=== PATIENT | female | born 1945 | race Caucasian/White ===

== ENCOUNTER 2022-04-29 12:17 | Inpatient (IN) | payer MEDICARE ==
[2022-04-29] MEDS ORDERED: Ondansetron 4 MG/2 ML SDV IVPUSH ONE (12:29)
[2022-04-29] MEDS ORDERED: Sodium Chloride 0.9% 500 ML IV SCH ×2 (12:30→13:45)
[2022-04-29 13:19] LABS: CARBON DIOXIDE,CO2 28.2 mmol/L (21.0-32.0); POTASSIUM,K 3.6 mmol/L (3.5-5.1)
[2022-04-29] MEDS ORDERED: Dexamethasone 10 MG/ML SDV IVPUSH ONE (14:22)
[2022-04-29] MEDS ORDERED: REMDESIVIR 200 MG in Sodium Chloride 0.9% 250 ML IV ONE (14:23)
[2022-04-29] MEDS ORDERED: Ondansetron 4 MG Tab PO PRN (15:24)
[2022-04-29] MEDS ORDERED: Albuterol/Ipratropium 3.0-0.5 MG/3 ML Neb Soln NEB PRN (15:25)
[2022-04-29] MEDS ORDERED: Albuterol/Ipratropium 4 GM Inhalation Spray INH PRN (15:26)
[2022-04-29] MEDS ORDERED: guaiFENesin/Dextromethorphan 100-10 MG/5 ML Soln 10 ML Cup PO PRN (15:30)
[2022-04-29] MEDS ORDERED: Magnesium Oxide 400 MG Tab PO ONE (15:38)
[2022-04-29] MEDS ORDERED: Acetaminophen 325 MG Tab PO PRN (15:39)
[2022-04-29] MEDS ORDERED: Enoxaparin 40 MG/0.4 ML Syringe SUBCUT SCH (15:45)
[2022-04-29] MEDS ORDERED: LOSARTAN 100 MG PO SCH (15:45)
[2022-04-29] MEDS: Albuterol/Ipratropium 4 GM Inhalation Spray INH SCH ×2 (18:38→23:04)
[2022-04-29] MEDS ORDERED: atorvaSTATin 40 MG Tab PO SCH (21:00)
[2022-04-30] MEDS: Albuterol/Ipratropium 4 GM Inhalation Spray INH SCH (06:09)
[2022-04-30 06:53] LABS: CARBON DIOXIDE,CO2 28.1 mmol/L (21.0-32.0); POTASSIUM,K 3.6 mmol/L (3.5-5.1)
[2022-04-30 07:59] VITALS: BP 149/70; PULSE 86
[2022-04-30] MEDS ORDERED: Losartan 50 MG Tab PO SCH (09:00)
[2022-04-30] MEDS ORDERED: Pantoprazole 40 MG Tab.CR PO SCH (09:00)
[2022-04-30] MEDS ORDERED: Dexamethasone 4 MG Tab PO SCH (14:30)
[2022-04-30] MEDS ORDERED: REMDESIVIR 100 MG in Sodium Chloride 0.9% 100 ML IV SCH (14:30)
== END 2022-04-30 12:10 | disposition home or self-care (01) | DRG 178 ==
LOC: MW.ED 12:17 → MW.MS 14:25
PROVIDERS: ADMIT Student in an Organized Health Care Education/Training Program; ATTEND Internal Medicine
PROC: XW033E5 Introduction of Remdesivir Anti-infective into Peripheral Vein, Percutaneous Approach, New Technology Group 5 (ICD-10-PCS; principal; 2022-04-29)
PROC: 3E0333Z Introduction of Anti-inflammatory into Peripheral Vein, Percutaneous Approach (ICD-10-PCS; 2022-04-29)
DX: U07.1 COVID-19 (principal); R09.02 Hypoxemia; N17.9 Acute kidney failure, unspecified; E86.0 Dehydration; J44.9 Chronic obstructive pulmonary disease, unspecified; E78.5 Hyperlipidemia, unspecified; E83.42 Hypomagnesemia; I10 Essential (primary) hypertension; F17.210 Nicotine dependence, cigarettes, uncomplicated; E78.00 Pure hypercholesterolemia, unspecified; Z90.49 Acquired absence of other specified parts of digestive tract; Z79.899 Other long term (current) drug therapy
CPT/HCPCS: 36415; 71045; 71045-26; 80053; 81001; 83735; 83880; 85025; 93005; 93010; 96361; 96365; 96375; 99221; 99239; 99285; 99285-25; A9270-GY; J1100; J1650; J2405; J7040; J7050; U0002

== ENCOUNTER 2023-05-23 15:38 | Emergency (ER) | payer MEDICARE ==
[2023-05-23 17:13] LABS: CORONAVIRUS COVID-19 NAA POSITIVE (NEGATIVE); INFLUENZA A NAA NEGATIVE (NEGATIVE); INFLUENZA B NAA NEGATIVE (NEGATIVE)
[2023-05-23 17:30] VITALS: BP 176/89; PULSE 89
== END 2023-05-23 17:29 | disposition home or self-care (01) ==
LOC: MW.ED 15:38
DX: U07.1 COVID-19 (principal); I10 Essential (primary) hypertension; J44.9 Chronic obstructive pulmonary disease, unspecified
CPT/HCPCS: 0240U; 99284; 99283

== ENCOUNTER 2024-04-28 13:19 | Emergency (ER) | payer MEDICARE ==
[2024-04-28] MEDS: traMADol 50 MG Tab PO STA (13:40)
[2024-04-28 15:37] VITALS: BP 162/79; PULSE 72
== END 2024-04-28 15:36 | disposition home or self-care (01) ==
LOC: MW.ED 13:19
DX: M79.604 Pain in right leg (principal); M79.605 Pain in left leg; Z75.8 Other problems related to medical facilities and other health care; I10 Essential (primary) hypertension; Z90.49 Acquired absence of other specified parts of digestive tract
CPT/HCPCS: 73521; 73562; 73590; 73610; 73630; 99283; A9270

== ENCOUNTER 2024-09-28 19:25 | Emergency (ER) | payer MEDICARE, BC ==
[2024-09-28] MEDS ORDERED: Tetracaine HCl/PF 0.5% 4 ML Bottle EYEBOTH PRN (19:31)
[2024-09-28] MEDS ORDERED: Fluorescein 1 MG Ophth Strip EYEBOTH PRN (19:31)
[2024-09-28 21:41] VITALS: BP 170/72; PULSE 72
== END 2024-09-28 21:39 | disposition home or self-care (01) ==
LOC: MW.ED 19:25
DX: B02.31 Zoster conjunctivitis (principal); I10 Essential (primary) hypertension; R09.81 Nasal congestion; J44.9 Chronic obstructive pulmonary disease, unspecified; Z90.49 Acquired absence of other specified parts of digestive tract; Z91.148 Patient's other noncompliance with medication regimen for other reason
CPT/HCPCS: 99283; J3490